=== PATIENT | male | born 1955 | race Caucasian/White ===

== ENCOUNTER 2017-09-22 20:10 | Inpatient (IN) ==
[2017-09-22] MEDS ORDERED: Nitroglycerin 0.4 MG TAB.SUBL SL PRN (20:21)
--- NOTE | 2017-09-22 20:23 | Emergency Department Note ---
Disposition Clinical Impression: Chest pain Qualifiers: Chest pain type: unspecified Qualified Code(s): R07.9 - Chest pain, unspecified Disposition: Admitted As Inpatient Condition: Fair Forms: ED Satisfaction Letter Time of Disposition: 21:23 Chest Pain HPI - General Chief Complaint: ED Chest Pain Stated Complaint: chest pain Time Seen by Provider: 09/22/17 20:16 Source: patient Mode of arrival: EMS Limitations: no limitations Vital Signs Reviewed: Yes Nursing Notes Reviewed: Yes - History of Present Illness HPI Narrative: 62-year-old male with a history of stent placed over the past couple years presented for evaluation of chest pain from the [place]. Patient states symptom onset was approximately a week ago with nausea vomiting diarrhea. Patient felt ill at that time. Patient has noted intermittent chest pain over the past 4 days. Patient states the pain is starting to subside but sought medical attention in the [place] prior to arrival. Patient received aspirin. Patient describing a throbbing left-sided chest pressure. No radiation. Patient denies any diaphoresis or nausea vomiting. Patient was evaluated initially at the [place]. Patient states he has been able to tolerate his Plavix given his recent nausea vomiting diarrhea. - Related Data Home Medications Medication Instructions Recorded Confirmed Aspirin [Lo-Dose Aspirin EC] 81 mg PO DAILY 07/25/16 09/22/17 Atorvastatin Calcium [Lipitor] 80 mg PO HS 07/25/16 09/22/17 Clopidogrel [Plavix] 75 mg PO DAILY 07/25/16 09/22/17 Carvedilol [Coreg] 50 mg PO BID 09/22/17 09/22/17 Levothyroxine [Synthroid] 100 mcg PO 0630 09/22/17 09/22/17 Lisinopril 2.5 mg PO DAILY 09/22/17 09/22/17 Mupirocin [Bactroban Oint] 1 appl TP TID 09/22/17 09/22/17 Sennosides/Docusate Sodium [Senna 1 each PO BID PRN 09/22/17 09/22/17 Plus] Allergies Allergy/AdvReac Type Severity Reaction Status Date / Time Penicillins Allergy Hives Verified 07/26/16 13:14 All systems ED: reviewed and negative except as stated. Constitutional: Reports: as per HPI. Denies: fever Eyes: Reports: as per HPI ENT ED: Reports: as per HPI Cardiovascular: Reports: as per HPI, chest pain Respiratory: Reports: as per HPI. Denies: cough, dyspnea Gastrointestinal: Reports: as per HPI, nausea, vomiting, diarrhea Genitourinary: Reports: as per HPI Musculoskeletal: Reports: as per HPI Integumentary: Reports: as per HPI Neurological: Reports: as per HPI Psychiatric: Reports: as per HPI Endocrine: Reports: as per HPI Chest Pain PMH - Past Medical History Medical history: Reports: renal disease, myocardial infarction, hypertension, thyroid disease Psychiatric history: Reports: no psych history - Social History Smoking Status: Current some day smoker Alcohol use: Reports: none Drug use: Reports: none Physical Exam - General Limitations: no limitations General appearance: alert, in no apparent distress - Head Head exam: atraumatic, normocephalic, normal inspection - Eye Eye exam: Present: normal appearance, PERRL, EOMI - ENT ENT exam: normal exam, mucous membranes moist - Neck Neck exam: Present: normal inspection, trachea midline - Chest Chest inspection: Present: normal inspection - Respiratory Respiratory exam: Present: normal lung sounds bilaterally. Absent: respiratory distress - Cardiovascular Cardiovascular exam: Present: regular rate - Abdominal Exam Abdominal exam: Present: soft, Non-Tender - Extremities Exam Extremities exam: Present: normal inspection - Back Exam Back exam: Present: normal inspection - Neurological Exam Neurological exam: Present: alert, oriented X3 - Skin Skin exam: Present: warm, dry, intact, normal color Course Course Narrative: Patient seen and examined. Patient did have EKG changes from serial EKGs at the [place]. He does have a concerning history with risk factors. Patient will get basic lab work and admission to the hospital service for further cardiac evaluation. Vital Signs Temperature 98.5 F 09/22/17 20:16 Pulse Rate 75 09/22/17 20:16 Respiratory Rate 16 09/22/17 20:16 Blood Pressure 120/65 09/22/17 20:16 O2 Sat by Pulse Oximetry 100 09/22/17 20:16 Temperature 98.5 F 09/22/17 20:16 Pulse Rate 75 09/22/17 20:16 Respiratory Rate 16 09/22/17 20:16 Blood Pressure 120/65 09/22/17 20:16 O2 Sat by Pulse Oximetry 100 09/22/17 20:16 Oxygen Delivery Oxygen Delivery Room Air Chest Pain - Lab Data Lab results reviewed: Yes I reviewed the patient's lab results. Result diagrams: 09/22/17 20:26 09/22/17 20:26 Lab Results 09/22/17 09/22/17 09/22/17 Range/Units 20:26 20:26 20:26 WBC 3.1 L (4.3-11.1) K/mcL RBC 3.97 L (4.19-5.50) M/mcL Hgb 11.3 L (12.9-16.9) g/dL Hct 36.0 L (37.5-50.1) % MCV 90.7 (83.0-100.0) fL MCH 28.5 (28.0-33.3) pg MCHC 31.4 L (31.6-35.5) g/dL RDW 15.0 H (11.5-14.5) % Plt Count 119 L (140-400) K/mcL MPV 9.3 L (9.4-12.4) fL Immature Gran % 0.6 (0-4) % Seg Neutrophils % 54.8 % Lymphocytes % 26.5 % Monocytes % 16.2 % Eosinophils % 1.3 % Basophils % 0.6 % Neutrophils # 1.7 (1.6-8.9) K/mcL Lymphocytes # 0.8 (0.6-4.6) K/mcL Monocytes # 0.5 (0.0-1.3) K/mcL Eosinophils # 0.0 (0.0-0.6) K/mcL Basophils # 0.0 (0.0-0.2) K/mcL PT 10.6 (9.4-12.1) Seconds INR 1.0 APTT 27.2 (26.0-36.0) Seconds Sodium (136-145) mEq/L Potassium (3.5-5.1) mEq/L Chloride (98-107) mEq/L Carbon Dioxide (23-29) mEq/L BUN (8-23) mg/dL Creatinine (0.70-1.30) mg/dL Est GFR ( Amer) (> 60) Est GFR (Non-Af Amer) (> 60) BUN/Creatinine Ratio (6-26) Glucose (70-105) mg/dL Calculated Osmolality (280-300) Calcium (8.6-10.3) mg/dL Troponin I (< 0.04) ng/mL B-Natriuretic Peptide 57 (Less than 100) pg/mL 09/22/17 09/22/17 Range/Units 20:26 20:26 WBC (4.3-11.1) K/mcL RBC (4.19-5.50) M/mcL Hgb (12.9-16.9) g/dL Hct (37.5-50.1) % MCV (83.0-100.0) fL MCH (28.0-33.3) pg MCHC (31.6-35.5) g/dL RDW (11.5-14.5) % Plt Count (140-400) K/mcL MPV (9.4-12.4) fL Immature Gran % (0-4) % Seg Neutrophils % % Lymphocytes % % Monocytes % % Eosinophils % % Basophils % % Neutrophils # (1.6-8.9) K/mcL Lymphocytes # (0.6-4.6) K/mcL Monocytes # (0.0-1.3) K/mcL Eosinophils # (0.0-0.6) K/mcL Basophils # (0.0-0.2) K/mcL PT (9.4-12.1) Seconds INR APTT (26.0-36.0) Seconds Sodium 129 L (136-145) mEq/L Potassium 4.5 (3.5-5.1) mEq/L Chloride 105 (98-107) mEq/L Carbon Dioxide 15 L (23-29) mEq/L BUN 93 H (8-23) mg/dL Creatinine 5.24 H (0.70-1.30) mg/dL Est GFR ( Amer) 14 L (> 60) Est GFR (Non-Af Amer) 11 L (> 60) BUN/Creatinine Ratio 18 (6-26) Glucose 91 (70-105) mg/dL Calculated Osmolality 296 (280-300) Calcium 8.3 L (8.6-10.3) mg/dL Troponin I 0.08 H* (< 0.04) ng/mL B-Natriuretic Peptide (Less than 100) pg/mL - Radiology Data Radiology results reviewed: Yes I reviewed the patient's radiology results. Chest X-Ray 09/22/17 20:20 IMPRESSION: No acute findings D/ / Lien Dutton MD / Lien Dutton MD Interpreting Provider: Lien Dutton MD - EKG Data EKG attestation: Yes I reviewed and interpreted this EKG. EKG shows normal: sinus rhythm Rate: normal Rhythm: NSR [place]/QRS: normal Q waves: III T wave inversions noted in: II, III, aVF, v3, v4, v5, v6 When compared to previous EKG there are: changes noted Interpretation: nonspecific ST-T wave changes
[2017-09-22 20:35] LABS: Basophils % 0.6 %; Eosinophils % 1.3 %; Hemoglobin 11.3 g/dL (12.9-16.9); Immature Granulocytes % 0.6 % (0-4); Lymphocytes # 0.8 K/mcL (0.6-4.6); Lymphocytes % 26.5 %; Mean Corpuscular HGB Conc 31.4 g/dL (31.6-35.5); Mean Corpuscular Hemoglobin 28.5 pg (28.0-33.3); Mean Corpuscular Volume 90.7 fL (83.0-100.0); Mean Platelet Volume 9.3 fL (9.4-12.4); Monocytes # 0.5 K/mcL (0.0-1.3); Monocytes % 16.2 %; Neutrophils # 1.7 K/mcL (1.6-8.9); Platelet Count 119 K/mcL (140-400); Red Blood Count 3.97 M/mcL (4.19-5.50); Segmented Neutrophils % 54.8 %
[2017-09-22 20:43] LABS: Prothrombin Time 10.6 Seconds (9.4-12.1)
[2017-09-22 20:46] LABS: Activated Partial Thrombo Time 27.2 Seconds (26.0-36.0)
[2017-09-22 20:49] LABS: Calcium 8.3 mg/dL (8.6-10.3); Potassium 4.5 mEq/L (3.5-5.1)
[2017-09-22] MEDS ORDERED: 0.9 % Sodium Chloride 1,000 ML IVC ONE (21:02)
--- NOTE | 2017-09-22 21:04 | Emergency Department Note ---
START Narrative - START START: I examined this patient and my medical decision-making was reviewed with the Resident Physician. I agree with the documented findings, disposition and treatment plan as described except to the extent set forth below. 62-year-old male presented to the ER for chest pain and weakness. States she has felt rundown since Tuesday. Was having some nausea vomiting diarrhea. He has been having increasing weakness ever since. His blood pressures been running in the 80s. He normally is hypertensive. On workup here patient has acute renal failure. Patient will need to be worked up and admitted for this. I started IV fluids. ACS rule out as well. His EKG does not show any changes as compared to previous. No critical care time
[2017-09-22] MEDS ORDERED: Sennosides/Docusate Sodium TABLET PO PRN (21:43)
[2017-09-22] MEDS ORDERED: Naloxone 0.4 MG/ML INJ IVP PRN (21:45)
--- NOTE | 2017-09-22 21:49 | Internal Med History&Physical ---
Date of Encounter: 09/22/17 Time of Encounter: 21:47 Assessment and Plan (1) Viral syndrome Current visit: Yes Status: Acute check RVP Symptoms include malaise, diarrhea, congestion, URI symptoms - now all getting better supportive IVF for now (2) TOÑO (acute kidney injury) Current visit: No Status: Acute IVF for acute on CKD trend cr likely pre-renal related to diarrhea (3) Hyponatremia Current visit: Yes Status: Acute likely related to volume depletion (4) CAD (coronary artery disease) Current visit: No Status: Chronic monitor for now, trend trop continue DAPT Qualifiers: Coronary Disease-Associated Artery/Lesion type: [place] artery [place] vs. transplanted heart: [place] heart Associated angina: without angina Qualified Code(s): I25.10 - Atherosclerotic heart disease of [place] coronary artery without angina pectoris (5) Hypertension Current visit: No Status: Chronic hold lisinopril for now given TOÑO on CKD continue coreg Qualifiers: Hypertension type: essential hypertension Qualified Code(s): I10 - Essential (primary) hypertension (6) Chest pain Current visit: Yes Status: Acute trend trop - further testing if needed pending trop trend tele monitor for now symptoms better likely related to viral syndrome above hx of CAD /SC s/p stent Qualifiers: Chest pain type: other chest pain Qualified Code(s): R07.89 - Other chest pain; R07.8 - Other chest pain Internal Medicine - H&P: HPI Chief complaint: Diarrhea, Fatigue, malaise, CP History of present illness: Mr. Burkett is a 62 year old male who presents with Diarrhea, Fatigue, malaise, CP. Found pre-renal TOÑO on CKD likely from viral syndrome. Also admitted for CP eval. He has a hx of HTN, CAD s/p SC and had stents x2 in 2016 and 2017. He started to develop symptoms on tuesday evening with feeling as if he is coming down with the flu associated with uri symptoms of runny nose, cough, congestion. [place] weak, malaise, no energy and decrease PO intake. BP noted to be low in 80s. Started to experience non-bloody diarrhea since tuesday that is associated with on and off left sided chest pain that is intermittent, and occasionally awakening him up. His symptoms are better today then it was last week EKG personally reviewed with rate 63, LVH, ST-T changes that is non-specific XR/XR chest 1V portable IMPRESSION: No acute findings Past Med Surg Social Fam HX - Past Medical History Medical history: renal disease, myocardial infarction, hypertension, thyroid disease Psychiatric history: no psych history - Past Surgical History Surgical History: angioplasty/stent (HTN) - Social History Smoking Status: Current some day smoker Smokeless Tobacco Status: No Alcohol use: none Drug use: none Internal Medicine - H&P: Meds Aspirin [Lo-Dose Aspirin EC] 81 mg PO DAILY 07/25/16 [History] Atorvastatin Calcium [Lipitor] 80 mg PO HS 07/25/16 [History] Clopidogrel [Plavix] 75 mg PO DAILY 07/25/16 [History] Carvedilol [Coreg] 50 mg PO BID 09/22/17 [History] Levothyroxine [Synthroid] 100 mcg PO 0630 09/22/17 [History] Lisinopril 2.5 mg PO DAILY 09/22/17 [History] Mupirocin [Bactroban Oint] 1 appl TP TID 09/22/17 [History] Sennosides/Docusate Sodium [Senna Plus] 1 each PO BID PRN 09/22/17 [History] 3 Allergy/AdvReac Type Severity Reaction Status Date / Time Penicillins Allergy Hives Verified 07/26/16 13:14 All Systems PM: A 10-system review of systems was performed and is negative for pertinent findings except as documented above in the HPI. Review of systems: ROS 14 point review of systems reviewed as best as possible given presentation. Pertinent positive or negative as per HPI or otherwise reviewed as negative - Constitutional Vitals: Temp Pulse Resp BP Pulse Ox 98.5 F 75 16 120/65 100 09/22/17 20:16 09/22/17 20:16 09/22/17 20:16 09/22/17 20:16 09/22/17 20:16 Exam: General - AAO x 3 Psych - Appropriate affect/speech. No agitation Eyes - SETH. Eye lids intact. No scleral icterus Neuro - No gross peripheral or central neuro deficits with intact CN 2-12 exam on inspection Heart - Sinus. RRR. S1 and S2 present. No added HS/murmurs appreciated. No elevated JVD appreciated. Lung - Adequate air entry b/l, No crackles/wheezes appreciated GI - Soft, non-tender. No hepatosplenomegaly/ascites. BS+ - No CVA/suprapubic tenderness or palpable bladder distension Skin - Decrease turgor. No rash/petechiae/ecchymosis. Warm extremities Internal Med - H&P Results - Labs CBC & Chem 7: 09/22/17 20:26 09/22/17 20:26
[2017-09-22] MEDS: 0.9 % Sodium Chloride 1,000 ML IVC SCH (22:30)
[2017-09-23 01:55] LABS: Adenovirus Not Detected (Not Detect); Bordetella Pertussis Not Detected (Not Detect); Chlamydophila pneumoniae Not Detected (Not Detect); Coronavirus 229E Not Detected (Not Detect); Coronavirus HKU1 Not Detected (Not Detect); Coronavirus NL63 Not Detected (Not Detect); Coronavirus OC43 Not Detected (Not Detect); Human Metapneumovirus Not Detected (Not Detect); Human Rhinovirus/Enterovirus Not Detected (Not Detect); Influenza A Subtype 2009 H1 Not Detected (Not Detect); Influenza A Untypeable Not Detected (Not Detect); Influenza B Not Detected (Not Detect); Mycoplasma pneumoniae Not Detected (Not Detect); Parainfluenza Virus 1 Not Detected (Not Detect); Parainfluenza Virus 2 Not Detected (Not Detect); Parainfluenza Virus 3 Not Detected (Not Detect); Parainfluenza Virus 4 Not Detected (Not Detect); Respiratory Syncytial Virus Not Detected (Not Detect)
[2017-09-23 02:52] LABS: Eosinophils % 1.8 %; Hematocrit 30.9 % (37.5-50.1); Hemoglobin 9.9 g/dL (12.9-16.9); Immature Granulocytes % 0.9 % (0-4); Lymphocytes % 28.7 %; Mean Corpuscular Hemoglobin 28.9 pg (28.0-33.3); Mean Corpuscular Volume 90.1 fL (83.0-100.0); Monocytes % 16.6 %; Platelet Count 104 K/mcL (140-400); Red Blood Count 3.43 M/mcL (4.19-5.50); Red Cell Distribution Width 15.2 % (11.5-14.5); Segmented Neutrophils % 51.6 %
[2017-09-23 02:53] LABS: Basophils % 0.4 %; Lymphocytes # 0.6 K/mcL (0.6-4.6); Monocytes # 0.4 K/mcL (0.0-1.3); Neutrophils # 1.2 K/mcL (1.6-8.9)
[2017-09-23 03:11] LABS: Calcium 7.5 mg/dL (8.6-10.3); Potassium 4.1 mEq/L (3.5-5.1)
[2017-09-23] MEDS: *HR* Heparin 5,000 UNIT/ML VIAL SQ SCH ×2 (05:59→17:14)
[2017-09-23] MEDS: Aspirin Enteric Coated 81 MG Tablet PO SCH (09:07)
[2017-09-23] MEDS: 0.9 % Sodium Chloride 1,000 ML IVC SCH ×2 (09:08→17:10)
--- NOTE | 2017-09-23 15:29 | Nephrology Consult Note ---
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 Avoid nephrotoxins if possible (2) CKD (chronic kidney disease) Status: Chronic Baseline unclear but at least up to GFR 38 Qualifiers: Chronic kidney disease stage: stage 3 (moderate) Qualified Code(s): N18.3 - Chronic kidney disease, stage 3 (moderate) (3) Hypocalcemia Status: Acute History of Present Illness - Reason for Consult Consult date: 09/23/17 Acute Kidney Injury, Chronic Kidney Disease Requesting physician: Domi Mg - History of Present Illness 62 y o male with PMH of HTN, CAD s/p [place], stents, possible ?SIMRAN and CKD with previous TOÑO presenting with a week of viral symptoms including upprer respiratory issues and diarrhea with decrease po intake. SCr noted at 5.24, GFR 11 on presenttatin. Last SCr in the system was from 2015 showing a recovery from TOÑO at 1.84, GFR 38. Per patient, [facility] almost back to GFR 60. He reports decreased po intake and as a result low BP readings which he is unaccustomed to. Influenza A noted positive Past Med Surg Social Fam HX - Past Medical History Medical history: renal disease, myocardial infarction, hypertension, thyroid disease Psychiatric history: no psych history - Past Surgical History Surgical History: angioplasty/stent - Social History Smoking Status: Current some day smoker Smokeless Tobacco Status: No Alcohol use: none Drug use: none - Family History Father Living Status: Age at : 55 Cause of : CVA Medications and Allergies Aspirin [Lo-Dose Aspirin EC] 81 mg PO DAILY 07/25/16 [History] Atorvastatin Calcium [Lipitor] 80 mg PO HS 07/25/16 [History] Clopidogrel [Plavix] 75 mg PO DAILY 07/25/16 [History] Carvedilol [Coreg] 50 mg PO BID 09/22/17 [History] Levothyroxine [Synthroid] 100 mcg PO 0630 09/22/17 [History] Mupirocin [Bactroban Oint] 1 appl TP TID 09/22/17 [History] Sennosides/Docusate Sodium [Senna Plus] 1 each PO BID PRN 09/22/17 [History] Oseltamivir Phosphate [Tamiflu] 30 mg PO DAILY #5 capsule 09/24/17 [Rx] 3 Allergy/AdvReac Type Severity Reaction Status Date / Time Penicillins Allergy Hives Verified 07/26/16 13:14 Review of Systems All Systems: reviewed and no additional remarkable complaints except as stated ( 10 systems reviewed as noted in HPI) Exam - Vital Signs Vital signs: Initial Vital Signs Temp Pulse Resp BP Pulse Ox 98.5 F 75 16 120/65 100 09/22/17 20:16 09/22/17 20:16 09/22/17 20:16 09/22/17 20:16 09/22/17 20:16 Vital Signs - Last 8 Hours Temp Pulse Resp BP Pulse Ox 09/23/17 10:44 98.1 F 84 16 111/67 94 09/23/17 07:30 98.3 F 67 15 143/60 97 Intake and Output 09/22/17 09/23/17 09/23/17 23:59 07:59 15:59 Intake Total 1480 / 1480 Balance 1480 / 1480 Intake: IV Fluids 1000 / 1000 0.9 % Sodium Chloride 1,000 ML 1000 / 1000 @ 125 mls/hr IVC .Q8H [facility] Rx#: [id number] Oral 480 / 480 Other: Meal Breakfast Percent of Meal Consumed 100% Weight 55.905 kg Patient Weight 09/23/17 23:59 Weight 55.905 kg - General Appearance General appearance: well-developed, well-nourished EENT: ATNC, mucous membranes dry Neck: no JVD, supple Respiratory: clear Cardiology: no edema, normal S1, normal S2 Gastrointestinal: no tenderness, no guarding Integumentary: warm and dry Neurologic: no focal deficit Musculoskeletal: no deformities Psychiatric: mood/affect appropriate Results - Lab Results 09/24/17 05:00 09/24/17 05:00 Most recent lab results Calcium 7.5 mg/dL (8.6-10.3) L 09/23/17 02:43 Consult Discharge Plan - Plan Instructions: Oseltamivir (By mouth), Coronary Artery Disease (DC), Acute Kidney Injury (DC), Chronic Kidney Disease (DC), Influenza (DC), Hypertension ( DC) Additional Instructions: Please follow-up with 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
[2017-09-23 16:48] LABS: Uric Acid 9.6 mg/dL (2.3-7.6)
--- NOTE | 2017-09-23 19:49 | Internal Med Progress Note ---
Date of Encounter: 09/23/17 Time of Encounter: 12:30 - Assessment and plan (1) Influenza A Current Visit: Yes Status: Acute Assessment and plan: per resp PCR. CXR non-acute. Start Tamiflu (renally dosed) (2) Renal failure Current Visit: No Status: Acute Assessment and plan: hx CKD. Follows with [facility]. Cr 5 on admission. Nephrology suspects volume depletion from viral illness. 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 Continue aggressive volume repletion. Nephrology following Qualifiers: Chronic kidney disease stage: stage 4 (severe) Qualified Code(s): N18.4 - Chronic kidney disease, stage 4 (severe) (3) CAD (coronary artery disease) Current Visit: No Status: Chronic Assessment and plan: hx CAD/[place]/stents. Reports recent chest pain, none in the last 2 days. Follows with [facility]. Troponin peaked at 0.08, no acte ST changes on EKG. Possibly secondary to worsening renal function. Patient currently declining stress test or Cardiology consultation. Denies CP. Cont to monitor on tele. Cont ASA, palvix, BB, statin Qualifiers: Coronary Disease-Associated Artery/Lesion type: [place] artery [place] vs. transplanted heart: [place] heart Associated angina: without angina Qualified Code(s): I25.10 - Atherosclerotic heart disease of [place] coronary artery without angina pectoris (4) Hyponatremia Current Visit: Yes Status: Acute Assessment and plan: Na 126 on admission. Neurologically intact. Na normalized with IV fluids. Monitor repeat CMP (5) Hypertension Current Visit: No Status: Chronic Assessment and plan: per hx. BP variable but acceptable. Holding ADELITA with TOÑO. Cont home BB. Monitor BP and titrate PRN Qualifiers: Hypertension type: essential hypertension Qualified Code(s): I10 - Essential (primary) hypertension (6) DVT prophylaxis Current Visit: Yes Status: Acute Assessment and plan: heparin - Subjective Interval history: Seen and examined at bedside, patient is new to me. Information obtained form chart review and patient report. He is upset and not cooperating with exam. 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 He is short and angry during exam. Does not offer much information. Says he wants to follow up with [facility]. Offered transfer but he is declining at this time - Constitutional Vitals: Temp Pulse Resp BP Pulse Ox 98.8 F 74 16 163/72 95 09/23/17 18:38 09/23/17 18:38 09/23/17 18:38 09/23/17 18:38 09/23/17 18:38 General appearance: Present: A&O X 3. Absent: pleasant - Head Head exam: Present: atraumatic, normocephalic - Eye Eye exam: Present: PERRL, conjuntiva pink, sclera anicteric Pupils: Present: PERRL - Neck Neck exam general surgery: Present: supple, trachea midline. Absent: lymphadenopathy - Respiratory Respiratory exam: Present: CTAB. Absent: accessory muscle use, rales, rhonchi, wheezes - Cardiovascular Cardiovascular exam: Present: RRR, +S1, +S2. Absent: diastolic murmur, gallop, rubs, systolic murmur - GI/Abdominal GI/Abdominal exam: Present: normal bowel sounds, soft, no peritoneal signs. Absent: distended, tenderness - Extremities Exam Extremities exam: Present: warm, radial pulses palpable and symmetrical. Absent : calf tenderness, cyanotic, pedal edema - Neurological Exam Neurological exam: Present: CN II-XII intact, oriented X3, no focal deficits. Absent: pronater drift, facial droop, speech deficit - Skin Skin exam: Present: dry, intact Internal Medicine: Result - Labs CBC & Chem 7: 09/23/17 02:43 09/23/17 02:43 Labs: Short CBC 09/23/17 Range/Units 02:43 WBC 2.2 L (4.3-11.1) K/mcL Hgb 9.9 L (12.9-16.9) g/dL Hct 30.9 L (37.5-50.1) % Plt Count 104 L (140-400) K/mcL Neutrophils # 1.2 L (1.6-8.9) K/mcL BMP 09/23/17 02:43 Sodium 136 Potassium 4.1 Chloride 109 H Carbon Dioxide 19 L BUN 92 H Creatinine 5.27 H Glucose 116 H Calcium 7.5 L Cardiac Enzymes 09/23/17 09/23/17 Range/Units 02:43 08:34 Troponin I 0.07 H* 0.07 H* (< 0.04) ng/mL - ABG Interpretation ABG results: PT/INR, D-dimer PT 10.6 Seconds (9.4-12.1) 09/22/17 20:26 Consult Discharge Plan - Plan [facility]errals: [facility] [Primary Care Provider] -
[2017-09-23] MEDS: Oseltamivir Phosphate 30 MG CAPSULE PO SCH ×2 (20:14→20:18)
[2017-09-24] MEDS ORDERED: 0.9 % Sodium Chloride 1,000 ML IVC SCH (00:15)
--- NOTE | 2017-09-24 03:47 | Event Note ---
Date of Encounter: 09/24/17 Time of Encounter: 03:44 Received several pages throughout the night for elevated blood pressures, the first of which was 190/85 at 23:05 on 09/23/17. Subsequent pages elaborate on patient refusal for intervention. I de-escalated IVF to 75mL/hr after initial page. Patient is on BID Coreg and has refused both doses on 09/23/17. I received another page at 03:16 (09/24/17) stating patient's pressure was 226/83. I visited with the patient who was completely asymptomatic at the time of our encounter. He denies any headache, visual disturbance, chest pain, shortness of air, nausea, vomiting, or other acute complaints. Discussed with patient risks of ongoing uncontrolled blood pressure of this magnitude and my recommended treatment (hydralazine); understanding expressed. Patient is clearly AOx3 and is persistently refusing any antihypertensive intervention stating that he has "lived with blood pressures in the 200s for 40 years". Patient expresses concerns of polypharmacy and also states he believes his BP is a transient phenomenon brought on by being woken up too much in the night. Patient is agreeable to continued BP monitoring including a recheck after being wakefully relaxed.
[2017-09-24 05:49] LABS: Basophils % 0.7 %; Eosinophils # 0.1 K/mcL (0.0-0.6); Hematocrit 33.4 % (37.5-50.1); Hemoglobin 10.6 g/dL (12.9-16.9); Immature Granulocytes % 0.3 % (0-4); Lymphocytes # 0.7 K/mcL (0.6-4.6); Lymphocytes % 23.3 %; Mean Corpuscular HGB Conc 31.7 g/dL (31.6-35.5); Mean Corpuscular Volume 91.3 fL (83.0-100.0); Mean Platelet Volume 9.5 fL (9.4-12.4); Monocytes # 0.4 K/mcL (0.0-1.3); Monocytes % 12.3 %; Neutrophils # 1.9 K/mcL (1.6-8.9); Platelet Count 105 K/mcL (140-400); Red Blood Count 3.66 M/mcL (4.19-5.50); Red Cell Distribution Width 14.9 % (11.5-14.5); Segmented Neutrophils % 61.4 %
[2017-09-24 06:11] LABS: Calcium 7.6 mg/dL (8.6-10.3); Potassium 4.5 mEq/L (3.5-5.1)
[2017-09-24] MEDS: *HR* Heparin 5,000 UNIT/ML VIAL SQ SCH (06:25)
[2017-09-24 08:09] VITALS: BP 189/84
[2017-09-24] MEDS: Aspirin Enteric Coated 81 MG Tablet PO SCH (09:21)
[2017-09-24] MEDS: Oseltamivir Phosphate 30 MG CAPSULE PO SCH (09:22)
--- NOTE | 2017-09-24 09:28 | Discharge Summary ---
Date of Encounter: 09/24/17 Time of Encounter: 09:26 - Discharge Diagnosis (1) Influenza A Priority: Primary Status: Acute Comments: symptomatic with generalized weakness and malaise. Respiratory PCR positive for influenza A. Tamiflu started however patient refused. Discussed at length the benefits of starting Tamiflu within 48 hours of symptom onset. Patient reported symptoms have been does not for the last 6 days and continued to decline Tamiflu. Afebrile. No cough. CXR without evidence of pneumonia/ infiltrate. Advised to follow-up with PCP. (2) Renal failure Priority: Primary Status: Acute Comments: hx CKD. Baseline renal function unclear but per nephrology at least stage III. Follows with [facility]. Cr 5.24/GFR 13 on admission which is worse than baseline. Likely secondary to volume depletion from viral illness. Evaluated by Nephrology who noted no acute indication for [employer] at this time. Renal function improved to creatinine 2.5/GFR 26 with aggressive IV volume repletion. Patient adamantly declined further work-up and treatment. Has follow-up with [facility] on 09/26/2017 Qualifiers: Chronic kidney disease stage: stage 3 (moderate) Qualified Code(s): N18.3 - Chronic kidney disease, stage 3 (moderate) (3) Hyponatremia Priority: Primary Status: Resolved Comments: Na 126 on admission. Neurologically intact. Na normalized with IV fluids. Na 137 at discharge (4) Hypertension Priority: Primary Status: Acute Comments: uncontrolled. Secondary to medication noncompliance. Blood pressure uncontrolled with SBP in the 200s while inpatient. Patient again adamantly refusing antihypertensives. Stated that he had lived with his blood pressure in the 200s for over 40 years. Discussed with patient the risk of ongoing uncontrolled blood pressure of the significance and strongly encourage medication compliance however patient continued to decline. Manual SBP at discharge in the 190s. Patient advised to resume home BB. Holding ADELITA with worsening renal function. Recommended follow-up with PCP within 1-2 days for BP recheck. Qualifiers: Hypertension type: essential hypertension Qualified Code(s): I10 - Essential (primary) hypertension (5) CAD (coronary artery disease) Priority: Secondary Status: Chronic Comments: hx CAD/SC/stents. Reports recent chest pain, none in the last 2 days. Follows with [facility]. Troponin peaked at 0.08, no acute ST changes on EKG. Possibly secondary to worsening renal function however he does have history of CAD which remained a concern. Denied CP, no SOB. Patient adamantly declined further workup or treatment from a cardiac standpoint area and furthermore he declined cardiac consultation. Says he has follow-up with contract forester on Tuesday09/26/17. Cont ASA, palvix, BB, statin Qualifiers: Coronary Disease-Associated Artery/Lesion type: [place] artery [place] vs. transplanted heart: [place] heart Associated angina: without angina Qualified Code(s): I25.10 - Atherosclerotic heart disease of [place] coronary artery without angina pectoris (6) Pancytopenia Priority: Primary Status: Acute Comments: With leukopenia, anemia and thrombocytopenia. Leukopenia and thrombocytopenia appeared to be new. Etiology unknown. Patient declined any workup/treatment. Recommend follow-up with PCP within one week. - Discharge Medications Prescriptions: Oseltamivir Phosphate [Tamiflu] 30 mg PO DAILY #5 capsule Home Medications: Aspirin [Lo-Dose Aspirin EC] 81 mg PO DAILY 07/25/16 [History] Atorvastatin Calcium [Lipitor] 80 mg PO HS 07/25/16 [History] Clopidogrel [Plavix] 75 mg PO DAILY 07/25/16 [History] Carvedilol [Coreg] 50 mg PO BID 09/22/17 [History] Levothyroxine [Synthroid] 100 mcg PO 0630 09/22/17 [History] Mupirocin [Bactroban Oint] 1 appl TP TID 09/22/17 [History] Sennosides/Docusate Sodium [Senna Plus] 1 each PO BID PRN 09/22/17 [History] Oseltamivir Phosphate [Tamiflu] 30 mg PO DAILY #5 capsule 09/24/17 [Rx] Allergies/Adverse Reactions: 3 Allergy/AdvReac Type Severity Reaction Status Date / Time Penicillins Allergy Hives Verified 07/26/16 13:14 Date of admission: 09/22/17 23:36 [facility] care physician[facility] Consults: 09/23/17 11:07 Consult to Nephrology [CONS] Routine Consulting Provider: Kidney Karolina/RADHA/JESSICA/MADHURI Reason for Consult: TOÑO on CKD Call Completed: Yes Discharging clinician: Domi Mg Anticipated date of discharge: 09/24/17 - Patient Status Disposition: Home, Self-Care Condition: Good Functional capacity at discharge: independent ambulation Overall status at discharge: patient is not back to baseline - Discharge Instructions Instructions: Influenza (DC), Oseltamivir (By mouth), Acute Kidney Injury (DC) , Chronic Kidney Disease (DC), Coronary Artery Disease (DC), Hypertension (DC) Follow [facility]: [facility] [Primary Care Provider] - Additional Instructions: Please follow-up with your primary contract forester and operations executive at the [facility] as previously planned - Diet and Activity Activity: increase activity as tolerated Diet: advance to your usual diet, low fat, low cholesterol, low salt diet Interval History: Seen and examined at bedside. He is requesting discharge by 10 AM, says he will follow-up with his operations executive and contract forester at the [facility]. He is still refusing blood pressure medication, also refusing Tamiflu. Attempted to discuss with him the importance of medication compliance and the concern for uncontrolled blood pressure however he abruptly interrupts me and adamantly refusing any medication or treatment besides finishing the rest of his IV fluids are infusing at this time. Says he lives with his blood pressure in the 200s for over 40 years and he would follow-up with his regular doctors. Advised to return to the ER if he experience worsening shortness of breath, chest pain headache or strokelike symptoms. Patient stated he will be fine and he knows how to take care of himself. Hospital course: See assessment and plan for hospital course - Time Spent with Patient Total time spent providing and/or coordinating discharge services: Greater than 30 minutes (48 minutes spent on discharge) - Constitutional Vitals: Temp Pulse Resp BP Pulse Ox 97.8 F 62 16 189/84 96 09/24/17 08:05 09/24/17 08:05 09/24/17 08:05 09/24/17 08:05 09/24/17 08:05 General appearance: Present: A&O X 3. Absent: pleasant - Head Head exam: Present: atraumatic, normocephalic - Eye Eye exam: Present: PERRL, conjuntiva pink, sclera anicteric Pupils: Present: PERRL - Neck Neck exam general surgery: Present: supple, trachea midline. Absent: lymphadenopathy - Respiratory Respiratory exam: Present: CTAB. Absent: accessory muscle use, rales, rhonchi, wheezes - Cardiovascular Cardiovascular exam: Present: RRR, +S1, +S2. Absent: diastolic murmur, gallop, rubs, systolic murmur - GI/Abdominal GI/Abdominal exam: Present: normal bowel sounds, soft, no peritoneal signs. Absent: distended, tenderness - Extremities Exam Extremities exam: Present: warm, radial pulses palpable and symmetrical. Absent : calf tenderness, cyanotic, pedal edema - Neurological Exam Neurological exam: Present: CN II-XII intact, oriented X3, no focal deficits. Absent: pronater drift, facial droop, speech deficit - Skin Skin exam: Present: dry, intact
--- NOTE | 2017-09-24 10:06 | Electrocardiograph Report ---
[place] [id number] Test Date: 2017-09-22 Pat Name: Piyush Burkett Department: 104 Room: 3B65 Gender: M [employer] Consultant: JUAN CARLOS : 1955 Requested By: Richard Syed Order Number: [id number] Reading MD: Licha Marino Measurements Intervals [place] Rate: 63 P: 70 VT: 129 QRS: 75 QRSD: 96 T: 239 QT: 420 QTc: 427 Interpretive Statements SINUS RHYTHM LEFT VENTRICULAR HYPERTROPHY AND ST-T CHANGE ANTEROLATERAL ST-T ABNORMALITIES MAY BE DUE TO HYPERTROPHY OR ISCHEMIA Electronically Signed On 09-24-2017 10:05:19 EST by Licha Marino
== END 2017-09-24 10:27 | disposition home or self-care (01) | DRG 866 ==
LOC: 3BNU 20:10 → EMEROO 20:10 → 3BNU 21:58
PROVIDERS: ADMIT Registered Nurse; ATTEND Registered Nurse